=== PATIENT | female | born 1955 | race Caucasian/White ===

== ENCOUNTER 2021-03-08 17:52 | Emergency (ER) | payer MEDICARE, MEDICAID ==
[~2021-03-08] VITALS: Ht 154 cm; Wt 50.0 kg
--- NOTE | 2021-03-08 18:19 | ED EENT ---
History of Present Illness General Chief Complaint: Nasal Problems Stated Complaint: HEMORRAGE IN NOSE Nursing Triage Note: PT AMB TO RM 6 PT STATES HAS HAD NOSEBLEED ON AND OFF FOR 5 DAYS, PT STATES WAS SEEN AT [facility] LAST PM AND WAS GIVEN AFRIN. SEEN AT [facility] TODAY HBG 7.2. NO CURRENT BLEEDING AT THIS X. Source: patient Exam Limitations: no limitations History of Present Illness Date Seen by Provider: Mar 08, 2021 Time Seen by Provider: 18:05 Initial Comments Patient is a 65-year-old female who presents to the emergency room with a chief complaint of nosebleed off and on for the last 5 days. Patient states that she was seen at [facility] several days ago and told to use Afrin and Vaseline in her naris. She states she is continued to bleed off and on. She went to [facility] today and was noted to have a hemoglobin down to 7.2. Patient was sent to the emergency room for further evaluation and management. Patient reports a history of anxiety and depression. She does not have diabetes, hypertension or any known bleeding disorders. She does not take excessive amounts of aspirin or ibuprofen. 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 She follows in [place]. She is recently removed and missed an appointment for follow-up in [facility] but is planning to schedule one soon for follow-up. She states she needs a repeat biopsy in her face. She has had extensive surgery to her right eye and face. She tells me that about a year ago she saw a clinic in [place] and was told that she needed a "bone marrow biopsy" but this scared her because she was initially told that all her labs and work-up were normal. She never did follow-up after this. She does state that she notes she had some bloody stool this morning. She attributes this to swallowing a lot of blood over the last 5 days. She denies shortness of breath or cough but she does feel a little bit weak today. No chest pain abdominal pain, nausea vomiting or diarrhea. No Covid concerns. She states she is not Covid vaccinated. Currently no active bleeding is noted from the nares although she did present with tissues in her nose that had little spots of blood on them. She states the right has been bleeding more briskly than the left. All other review of systems reviewed and negative except as stated Timing/Duration: intermittent Severity: severe Location: nose Prearrival Treatment: squeezing nostrils, nasal packing Modifying Factors: Improves With Other (afrin and vaseline) Allergies and Home Medications Patient Home Medication List Home Medication List Reviewed: Yes Review of Systems Review of Systems Constitutional: see HPI Eyes: No Symptoms Reported Ears: No Symptoms Reported Nose: clots, epistaxis, bloody discharge Mouth: no symptoms reported Throat: no symptoms reported Respiratory: no symptoms reported Cardiovascular: no symptoms reported Gastrointestinal: no symptoms reported : No Musculoskeletal: no symptoms reported Skin: no symptoms reported Neurological: Anxiety, Other (generalized weakness) All Other Systems Reviewed Negative Unless Noted: Yes Past Njdhtzm-Aiqoug-Vnngwh Hx Patient Social History Tobacco Use?: Yes Tobacco type used: Cigarettes Smoking Status: Current Everyday Smoker Substance use?: No Alcohol Use?: No Pt feels they are or have been: No Physical Exam Vital Signs Vital Signs - First Documented 03/08/21 17:52 Temp 36.3 Pulse 104 Resp 18 B/P (MAP) 144/95 (111) Pulse Ox 98 Height, Weight, BMI Height: '" Weight: lbs. oz. kg; 21.00 BMI Method: General Appearance: WD/WN, no apparent distress Eyes: bilateral eye normal inspection, bilateral eye PERRL, bilateral eye EOMI, bilateral eye other (conjunctiva on the left pale - right is very injected (patient states this is chronic)) Nose: normal inspection (No active bleeding noted from either nare) Mouth/Throat: normal mouth inspection Neck: supple Cardiovascular: regular rate, rhythm (tachy 105) Respiratory: lungs clear, normal breath sounds, no respiratory distress, no accessory muscle use Gastrointestinal: normal bowel sounds, non tender, soft Neurologic/Psychiatric: alert, normal mood/affect, oriented x 3 Skin: normal color, warm/dry Progress/Results/Core Measures Results/Orders Lab Results Laboratory Tests Test 03/08/21 17:58 Range/Units White Blood Count 9.8 4.3-11.0 10^3/uL Red Blood Count 2.70 L 3.80-5.11 10^6/uL Hemoglobin 8.0 L 11.5-16.0 g/dL Hematocrit 25 L 35-52 % Mean Corpuscular Volume 92 80-99 fL Mean Corpuscular Hemoglobin 30 25-34 pg Mean Corpuscular Hemoglobin Concent 32 32-36 g/dL Red Cell Distribution Width 13.8 10.0-14.5 % Platelet Count 273 130-400 10^3/uL Mean Platelet Volume 9.4 9.0-12.2 fL Immature Granulocyte % (Auto) 0 % Neutrophils (%) (Auto) 63 42-75 % Lymphocytes (%) (Auto) 29 12-44 % Monocytes (%) (Auto) 7 0-12 % Eosinophils (%) (Auto) 1 0-10 % Basophils (%) (Auto) 1 0-10 % Neutrophils # (Auto) 6.1 1.8-7.8 10^3/uL Lymphocytes # (Auto) 2.8 1.0-4.0 10^3/uL Monocytes # (Auto) 0.6 0.0-1.0 10^3/uL Eosinophils # (Auto) 0.1 0.0-0.3 10^3/uL Basophils # (Auto) 0.1 0.0-0.1 10^3/uL Immature Granulocyte # (Auto) 0.0 0.0-0.1 10^3/uL Sodium Level 139 135-145 MMOL/L Potassium Level 3.4 L 3.6-5.0 MMOL/L Chloride Level 105 98-107 MMOL/L Carbon Dioxide Level 27 21-32 MMOL/L Anion Gap 7 5-14 MMOL/L Blood Urea Nitrogen 28 H 7-18 MG/DL Creatinine 0.69 0.60-1.30 MG/DL Estimat Glomerular Filtration Rate 85 BUN/Creatinine Ratio 41 Glucose Level 104 70-105 MG/DL Calcium Level 9.2 8.5-10.1 MG/DL Corrected Calcium 9.3 8.5-10.1 MG/DL Total Bilirubin 0.1 0.1-1.0 MG/DL Aspartate Amino Transf (AST/SGOT) 29 5-34 U/L Alanine Aminotransferase (ALT/SGPT) 26 0-55 U/L Alkaline Phosphatase 60 40-136 U/L Total Protein 6.2 L 6.4-8.2 GM/DL Albumin 3.9 3.2-4.5 GM/DL My Orders Orders - LAKESHA BENJAMIN MD Ed Iv/Invasive Line Start (03/08/21 18:13) Cbc With Automated Diff (03/08/21 18:13) Comprehensive Metabolic Panel (03/08/21 18:13) Type And Screen (03/08/21 18:13) Vital Signs/I&O 03/08/21 17:52 Temp 36.3 Pulse 104 Resp 18 B/P (MAP) 144/95 (111) Pulse Ox 98 Blood Pressure Mean: 111 Progress Progress Note : Time: 19:18 Progress Note Patient seen and examined, 65-year-old female with a chief complaint of nose bleeding for the last for 5 days. No bleeding noted here in the emergency department. Patient has been persistently a little tachycardic with heart rates 100-105. I suspect that she may be tachycardic secondary to the amount of bleeding she has had over the last several days. Hemoglobin is 8, I see no urgency and transfusing the patient at this time for her hemoglobin. I have recommended that she start taking an [id number] iron supplement. She is agreeable with this plan of care. I have advised her that she will continue to feel a little bit weak and generally sleepy until her numbers start to creep back up. She will need to follow-up in a week to make sure that her numbers are continuing to improve. I am also going to refer her to ENT so that she has a local provider to further investigate the source of her nosebleeds. I have given her good return precautions. She verbalizes understanding, she is comfortable with the plan of care. All questions are sought and answered. Patient is stable for discharge. Counseling-Asymptomatic: 3-10 minutes Follow-up with PCP to: Discuss Further Options Departure Impression Primary Impression: Anemia Qualified Codes: D64.9 - Anemia, unspecified Additional Impression: History of epistaxis Disposition: 01 HOME, SELF-CARE Condition: Stable Departure-Patient Inst. Decision time for Depature: 19:20 Referrals: MARITZA GARNETT MD NO,LOCAL PHYSICIAN (PCP) Primary Care Physician Patient Instructions: Nosebleeds (DC) Add. Discharge Instructions: Start taking an [id number] iron supplement daily, VITRON C is a good supplement to take. This will not make you as constipated as well other brands of iron supplement. I have given you the number for Dr. Garnett, our local ear nose and throat doctor. Please call his office for a follow-up appointment for further evaluation of your nosebleeds. You can use [id number] saline nasal sprays to help keep the nose nice and moist and help prevent recurrence of nosebleeds. If you do have another nosebleed that does not stop after 15 minutes of direct pressure please come back to the emergency department for reevaluation. Keep your follow-up with your cancer provider. Follow-up at [facility] in 1 week to have your hemoglobin rechecked. LAKESHA BENJAMIN MD Mar 08, 2021 18:19
[2021-03-08 18:26] LABS: BASOPHILS # (AUTO) 0.1 10^3/uL (0.0-0.1); BASOPHILS % (AUTO) 1 % (0-10); EOSINOPHILS # (AUTO) 0.1 10^3/uL (0.0-0.3); EOSINOPHILS % (AUTO) 1 % (0-10); HEMATOCRIT 25 % (35-52); LYMPHOCYTES # (AUTO) 2.8 10^3/uL (1.0-4.0); LYMPHOCYTES % (AUTO) 29 % (12-44); MEAN CORPUSCULAR HEMOGLOBIN 30 pg (25-34); MEAN CORPUSCULAR HGB CONC 32 g/dL (32-36); MEAN CORPUSCULAR VOLUME 92 fL (80-99); MEAN PLATELET VOLUME 9.4 fL (9.0-12.2); MONOCYTES # (AUTO) 0.6 10^3/uL (0.0-1.0); MONOCYTES % (AUTO) 7 % (0-12); NEUTROPHILS # (AUTO) 6.1 10^3/uL (1.8-7.8); NEUTROPHILS % (AUTO) 63 % (42-75); PLATELET COUNT 273 10^3/uL (130-400); WHITE BLOOD COUNT 9.8 10^3/uL (4.3-11.0)
[2021-03-08 18:31] LABS: ALBUMIN 3.9 GM/DL (3.2-4.5); POTASSIUM 3.4 MMOL/L (3.6-5.0)
[2021-03-08 18:32] LABS: CALCIUM 9.2 MG/DL (8.5-10.1)
[2021-03-08 18:33] LABS: TOTAL PROTEIN 6.2 GM/DL (6.4-8.2)
[2021-03-08 18:35] LABS: BILIRUBIN,TOTAL 0.1 MG/DL (0.1-1.0)
[2021-03-08 18:37] LABS: CREATININE SERUM 0.69 MG/DL (0.60-1.30)
[2021-03-08 19:53] VITALS: BP 122/71
== END 2021-03-08 19:53 | disposition home or self-care (01) ==
LOC: ER 17:57
DX: D64.9 Anemia, unspecified (principal); F17.210 Nicotine dependence, cigarettes, uncomplicated
CPT/HCPCS: 36415; 80053; 85025; 86850; 86900; 86901